=== PATIENT | male | born 1965 | race Caucasian/White ===

== ENCOUNTER 2016-08-12 09:39 | Emergency (ER) | payer MEDICARE, MEDICAID ==
[2016-08-12 10:00] VITALS: BP 151/83
--- NOTE | 2016-08-12 10:18 | UC ---
Throat Pain/Nasal Mehul HPI - HPI Summary HPI Summary: patient has had left sided frontal sinus pressure for the past 3 days, not relieved with advil or warm compresses. - History of Current Complaint Chief Complaint: UCGeneralIllness Stated Complaint: SINUSES Time Seen by Provider: 08/12/16 10:08 Hx Obtained From: Patient Onset/Duration: Sudden Onset, Lasting Days Severity: Moderate Cough: None Associated Signs & Symptoms: Positive: Sinus Discomfort, Nasal Discharge - Allergies/Home Medications Allergies/Adverse Reactions: Allergies Allergy/AdvReac Type Severity Reaction Status Date / Time No Known Allergies Allergy Verified 08/12/16 09:59 Home Medications: Home Medications Atorvastatin* [Lipitor 10 MG*] 30 mg PO BEDTIME 08/12/16 [History Confirmed ] Ibuprofen TAB* [Advil TAB*] 400 mg PO Q6H PRN 08/12/16 [History Confirmed ] Lisinopril [Prinivil TAB 20 mg] 20 mg PO DAILY 08/12/16 [History Confirmed 08/12] PMH/Surg Hx/FS Hx/Imm Hx Previously Healthy: Yes Cardiovascular History Of: Reports: Hypertension - Surgical History Surgical History: None - Family History Known Family History: Positive: Cardiac Disease, Hypertension - Social History Alcohol Use: Rare Substance Use Type: None Smoking Status (MU): Current Every Day Smoker Type: Cigarettes Amount Used/How Often: 1 PPD Length of Time of Smoking/Using Tobacco: 30 Have You Smoked in the Last Year: Yes - Immunization History Most Recent Influenza Vaccination: not this season Review of Systems Constitutional: Fatigue Skin: Negative Eyes: Eye Redness ENT: Sore Throat, Ear Ache, Nasal Discharge Respiratory: Negative Cardiovascular: Negative Gastrointestinal: Negative Genitourinary: Negative Motor: Negative Neurovascular: Negative Musculoskeletal: Negative Neurological: Headache Psychological: Negative All Other Systems Reviewed And Are Negative: Yes Physical Exam Triage Information Reviewed: Yes Appearance: Well-Nourished, Ill-Appearing, Pain Distress Vital Signs: Initial Vital Signs Temp 98.6 F 08/12/16 09:54 Pulse 109 08/12/16 09:54 Resp 16 08/12/16 09:54 BP 151/83 08/12/16 09:54 Pulse Ox 99 08/12/16 09:54 Vital Signs Reviewed: Yes Eye Exam: Normal Eyes: Positive: Conjunctiva Inflamed ENT: Positive: Pharyngeal erythema, Nasal congestion, Nasal drainage, TM bulging - right Neck exam: Normal Neck: Positive: Supple, Nontender Respiratory Exam: Normal Respiratory: Positive: Chest non-tender, Lungs clear, Normal breath sounds Cardiovascular Exam: Normal Cardiovascular: Positive: RRR, No Murmur, Pulses Normal Abdominal Exam: Normal Abdomen Description: Positive: Nontender, No Organomegaly, Soft Bowel Sounds: Positive: Present Musculoskeletal Exam: Normal Musculoskeletal: Positive: Strength Intact, ROM Intact, No Edema Neurological Exam: Normal Neurological: Positive: Alert, Muscle Tone Normal Psychological Exam: Normal Skin Exam: Normal Throat Pain/Nasal Course/Dx - Course Course Of Treatment: hx obtained, exam performed, meds reviewed, treated for sinusitis - Differential Dx/Diagnosis Differential Diagnosis/HQI/PQRI: Influenza, Laryngitis, Otitis Media, Pharyngitis, Sinusitis, URI Provider Diagnoses: sinusitis Discharge - Discharge Plan Condition: Stable Disposition: HOME Prescriptions: Amoxicillin/Clavulanate TAB* [Augmentin TAB 875*] 875 mg PO BID #20 tab predniSONE TAB* [Deltasone TAB*] 40 mg PO DAILY #10 tab Patient Education Materials: Sinusitis (ED) Referrals: Leopoldo Sanchez [Primary Care Provider] - Additional Instructions: 1. take the medication as prescribed. 2. Increase your fluid intake and get plenty of rest 3. Follow up with any worsening symtpoms.
== END 2016-08-12 10:28 | disposition home or self-care (01) ==
LOC: UCCORT 09:39
DX: J32.9 Chronic sinusitis, unspecified (principal); I10 Essential (primary) hypertension; F17.210 Nicotine dependence, cigarettes, uncomplicated
CPT/HCPCS: 99212; G0463

== ENCOUNTER 2017-02-16 09:06 | Emergency (ER) | payer MEDICARE, MEDICAID ==
[2017-02-16 10:47] VITALS: BP 143/77
--- NOTE | 2017-02-16 11:29 | UC ---
Throat Pain/Nasal Mehul HPI - HPI Summary HPI Summary: Patient has increased right sided frontal and maxillary sinus pressure. pain in ear and now going into jaw. - History of Current Complaint Chief Complaint: UCRespiratory Stated Complaint: SINUS COMPLAINT Hx Obtained From: Patient Onset/Duration: Sudden Onset, Lasting Days Severity: Severe Associated Signs & Symptoms: Positive: Dysphagia, Sinus Discomfort, Nasal Discharge - Allergies/Home Medications Allergies/Adverse Reactions: Allergies Allergy/AdvReac Type Severity Reaction Status Date / Time No Known Allergies Allergy Verified 02/16/17 10:47 PMH/Surg Hx/FS Hx/Imm Hx Previously Healthy: Yes - Surgical History Surgical History: None - Family History Known Family History: Positive: Cardiac Disease, Hypertension - Social History Alcohol Use: Rare Substance Use Type: None Smoking Status (MU): Heavy Every Day Tobacco Smoker Type: Cigarettes Amount Used/How Often: 1 PPD Length of Time of Smoking/Using Tobacco: started at age 15 Have You Smoked in the Last Year: Yes - Immunization History Most Recent Influenza Vaccination: not this season Review of Systems Constitutional: Chills, Fatigue Skin: Negative Eyes: Eye Redness ENT: Sore Throat, Ear Ache - right, Nasal Discharge - right, Sinus Congestion, Sinus Pain/Tenderness - right Respiratory: Cough Cardiovascular: Negative Gastrointestinal: Negative Genitourinary: Negative Motor: Negative Neurovascular: Negative Musculoskeletal: Negative Neurological: Headache Psychological: Negative Is Patient Immunocompromised?: No All Other Systems Reviewed And Are Negative: Yes Physical Exam Triage Information Reviewed: Yes Appearance: Well-Nourished, Ill-Appearing, Pain Distress Vital Signs: Initial Vital Signs Temp 98.5 F 02/16/17 10:42 Pulse 97 02/16/17 10:42 Resp 16 02/16/17 10:42 BP 143/77 02/16/17 10:42 Pulse Ox 99 02/16/17 10:42 Vital Signs Reviewed: Yes Eyes: Positive: Conjunctiva Inflamed - eye ENT: Positive: Nasal congestion, Nasal drainage, TM red - right Dental Exam: Normal Neck exam: Normal Respiratory Exam: Normal Respiratory: Positive: Chest non-tender, No respiratory distress, No accessory muscle use, Wheezing, Inspiration Cardiovascular Exam: Normal Cardiovascular: Positive: RRR, No Murmur, Pulses Normal Abdominal Exam: Normal Abdomen Description: Positive: Nontender, No Organomegaly, Soft Bowel Sounds: Positive: Present Musculoskeletal Exam: Normal Neurological Exam: Normal Psychological Exam: Normal Skin Exam: Normal Throat Pain/Nasal Course/Dx - Course Course Of Treatment: hx obtained,exam performed ,meds reviewed, treated for sinusitis and bronchospasm - Differential Dx/Diagnosis Differential Diagnosis/HQI/PQRI: Otitis Media, Pharyngitis, Sinusitis, URI Provider Diagnoses: sinusitis. bronchospasm. tabacco abuse Discharge - Discharge Plan Condition: Stable Disposition: HOME Prescriptions: Amoxicillin PO (*) [Amoxicillin 875 MG (*)] 875 mg PO BID #20 tab predniSONE TAB* [Deltasone TAB*] 40 mg PO DAILY #14 tab Patient Education Materials: Sinusitis (ED) Referrals: Angel VALENCIA,Leopoldo Cordova [Primary Care Provider] - Additional Instructions: 1. taket the medication as prescribed. 2. Warm compresses to the sinuses 3. Tylenol and ibuprofen for pain and fever. 4. Follow up with any worsening symtpoms.
== END 2017-02-16 11:35 | disposition home or self-care (01) ==
LOC: UCCORT 09:06
DX: J32.9 Chronic sinusitis, unspecified (principal); J98.01 Acute bronchospasm; F17.210 Nicotine dependence, cigarettes, uncomplicated
CPT/HCPCS: 99212; G0463

== ENCOUNTER 2018-06-07 10:41 | Emergency (ER) | payer MEDICARE, MEDICAID ==
[2018-06-07 11:24] VITALS: BP 155/86
--- NOTE | 2018-06-07 11:56 | UC ---
Respiratory Complaint HPI - HPI Summary HPI Summary: 4 days of congestion. Two days of left sinus pain. No prior ENT surgery. No fever. No dental pain. There has been some green/yellow drainage. - History of Current Complaint Chief Complaint: UCGeneralIllness Stated Complaint: CONGESTION,SINUS Time Seen by Provider: 06/07/18 11:30 Hx Obtained From: Patient Onset/Duration: Gradual Onset, Lasting Days, Still Present Timing: Constant Severity Initially: Moderate Severity Currently: Moderate Pain Intensity: 4 Pain Scale Used: 0-10 Numeric Aggravating Factors: Deep Breaths, Recumbent Position Alleviating Factors: Upright Position, Spontaneous Resolution Associated Signs And Symptoms: Positive: URI, Nasal Congestion, Sinus Discomfort. Negative: Dyspnea, Fever, Chills, Hemoptysis, Dizziness, Calf Pain , Calf Swelling, Hoarseness - Allergies/Home Medications Allergies/Adverse Reactions: Allergies Allergy/AdvReac Type Severity Reaction Status Date / Time No Known Allergies Allergy Verified 02/16/17 10:47 Home Medications: Home Medications Acetaminophen TAB* [Tylenol TAB*] 650 mg PO Q4H PRN 06/07/18 [History Confirmed 06/07/18] Phenylephrine HCl [Sinus Pressure-Mehul Relief PE] 10 mg PO ONCE PRN 06/07/18 [ History Confirmed 06/07/18] PMH/Surg Hx/FS Hx/Imm Hx Previously Healthy: No - No prior sinus disease - Surgical History Surgical History: None - Family History Known Family History: Positive: Cardiac Disease, Hypertension - Social History Alcohol Use: None Substance Use Type: None Smoking Status (MU): Heavy Every Day Tobacco Smoker Type: Cigarettes Amount Used/How Often: 1 PPD Length of Time of Smoking/Using Tobacco: started at age 15 Have You Smoked in the Last Year: Yes - Immunization History Most Recent Influenza Vaccination: not this season Review of Systems All Other Systems Reviewed And Are Negative: Yes ENT: Positive: Sinus Congestion, Sinus Pain/Tenderness Physical Exam Triage Information Reviewed: Yes Appearance: Well-Appearing, No Pain Distress, Well-Nourished Vital Signs: Initial Vital Signs Temp 98.4 F 06/07/18 11:21 Pulse 102 06/07/18 11:21 Resp 16 06/07/18 11:21 BP 155/86 06/07/18 11:21 Pulse Ox 99 06/07/18 11:21 Vital Signs Reviewed: Yes Eyes: Positive: Conjunctiva Clear ENT: Positive: Pharynx normal, Nasal congestion, TMs normal, Uvula midline. Negative: Pharyngeal erythema, Nasal drainage, TM bulging, TM dull, TM red, Tonsillar swelling, Tonsillar exudate, Trismus, Muffled voice, Sinus tenderness Neck: Positive: Supple, Nontender, No Lymphadenopathy Respiratory: Positive: Lungs clear, Normal breath sounds, No respiratory distress, No accessory muscle use. Negative: Respiratory distress, Decreased breath sounds, Accessory muscle use, Crackles, Rhonchi, Stridor, Wheezing Cardiovascular: Positive: No Murmur, Pulses Normal, Brisk Capillary Refill Abdomen Description: Positive: Soft. Negative: Distended, Guarding Musculoskeletal: Positive: Strength Intact, ROM Intact, No Edema Neurological: Positive: Alert, Muscle Tone Normal. Negative: Fatigued Psychological: Positive: Normal Response To Family, Age Appropriate Behavior Skin: Negative: Rashes Respiratory Course/Dx - Differential Dx/Diagnosis Provider Diagnosis: URI (upper respiratory infection) Discharge - Sign-Out/Discharge Documenting (check all that apply): Patient Departure All imaging exams completed and their final reports reviewed: No Studies - Discharge Plan Condition: Good Disposition: HOME Prescriptions: Amoxicillin PO (*) [Amoxicillin 875 MG (*)] 875 mg PO BID #20 tab Patient Education Materials: Upper Respiratory Infection (ED) Referrals: Leopoldo Sanchez [Primary Care Provider] - Additional Instructions: Flonase, netti pot, nasal irrigation. Start antibiotic if symptoms persist or worsen around day 9 or so - Billing Disposition and Condition Condition: GOOD Disposition: Home
== END 2018-06-07 11:49 | disposition home or self-care (01) ==
LOC: UCCORT 10:41
DX: J06.9 Acute upper respiratory infection, unspecified (principal); F17.210 Nicotine dependence, cigarettes, uncomplicated
CPT/HCPCS: 99212; G0463

== ENCOUNTER 2019-06-28 08:26 | Emergency (ER) | payer MEDICAID, MEDICARE, OTHER ==
[2019-06-28 08:45] VITALS: BP 201/88
--- NOTE | 2019-06-28 08:49 | UC ---
Back Pain HPI - HPI Summary HPI Summary: 53-year-old male who was lifting an approximate 70-80 pound bag while at work on June 04. He experienced moderate low back pain but continued to work the next day. He states since then he has not worked and has tried to take care of it at home however has been unsuccessful. He came today because his family encouraged him to seek treatment. He denies any saddle anesthesia, no difficulty urinating and no difficulty with bowel movements. He does have mild radiation from the right buttock into his posterior thigh. - History of Current Complaint Chief Complaint: UCBackPain Stated Complaint: WC-BACK INJURY Time Seen by Provider: 06/28/19 08:35 Hx Obtained From: Patient Onset/Duration: Sudden Onset, Lasting Weeks Timing: Constant Severity Initially: Moderate Severity Currently: Moderate Pain Intensity: 8 Character: Sharp, Spasmodic Aggravating Factor(s): Movement, Lifting, Bending Alleviating Factor(s): Nothing - Rest and not moving helps Associated Signs And Symptoms: Positive: Negative. Negative: Weakness, Numbness , Tingling, Abdominal Pain, Flank Pain, Bladder Incontinence, Bowel Incontinence - Allergies/Home Medications Allergies/Adverse Reactions: Allergies Allergy/AdvReac Type Severity Reaction Status Date / Time No Known Allergies Allergy Verified 06/28/19 08:45 Home Medications: Home Medications Buspirone HCl 7.5 mg PO BID 12/07/14 [History Confirmed 06/28/19] Atorvastatin* [Lipitor 10 MG*] 30 mg PO BEDTIME 08/12/16 [History Confirmed ] Ibuprofen TAB* [Advil TAB*] 800 mg PO Q6H PRN 08/12/16 [History Confirmed ] lisinopriL [Prinivil TAB 20 mg] 20 mg PO DAILY 08/12/16 [History Confirmed 06/27] Acetaminophen TAB* [Tylenol TAB*] 650 mg PO Q4H PRN 06/07/18 [History Confirmed 06/28/19] Cyclobenzaprine TAB* [Flexeril 10 MG TAB*] 10 mg PO TID PRN #21 tab 06/28/19 [Rx ] Ibuprofen TAB* [Motrin TAB* 600 MG] 600 mg PO Q8H PRN #30 tab 06/28/19 [Rx] PMH/Surg Hx/FS Hx/Imm Hx Previously Healthy: Yes Cardiovascular History: Hypertension Psychological History: Anxiety - Surgical History Surgical History: None - Family History Known Family History: Positive: Cardiac Disease, Hypertension - Social History Lives: With Family Alcohol Use: None Substance Use Type: None Smoking Status (MU): Former Smoker Type: Cigarettes Amount Used/How Often: 1 PPD Length of Time of Smoking/Using Tobacco: started at age 15 Have You Smoked in the Last Year: Yes When Did the Patient Quit Smoking/Using Tobacco: Apr 2019 - Immunization History Most Recent Influenza Vaccination: not this season Review of Systems All Other Systems Reviewed And Are Negative: Yes Musculoskeletal: Positive: Other: - Pasin mostly right lower back which also radiates mildly down right buttock and upper right posterior thigh Neurological/Mental Status: Negative: Weakness, Paresthesia, Numbness Is Patient Immunocompromised?: No Physical Exam Triage Information Reviewed: Yes Appearance: Well-Appearing, No Pain Distress, Well-Nourished Vital Signs: Initial Vital Signs Temp 99.3 F 06/28/19 08:38 Pulse 111 06/28/19 08:38 Resp 18 06/28/19 08:38 BP 201/88 06/28/19 08:38 Pulse Ox 100 06/28/19 08:38 Vital Signs Reviewed: Yes Respiratory: Positive: Lungs clear, Normal breath sounds, No respiratory distress, No accessory muscle use Cardiovascular: Positive: RRR, No Murmur, Pulses Normal, Brisk Capillary Refill Abdomen Description: Positive: Nontender, Soft. Negative: CVA Tenderness (R), CVA Tenderness (L) Bowel Sounds: Positive: Present Musculoskeletal: Positive: Strength Intact, ROM Intact, Other: - Good peripheral pulses, neuro sensation and capillary refill. Mild pain on palpation right buttock. 9 is nontender. Neurological Exam: Normal - Reflexes +2 at the knee, mild right straight leg raise. Neurological: Positive: Alert Psychological Exam: Normal Skin Exam: Normal Back Pain Course/Dx - Course Course Of Treatment: Patient is comfortable here. He refused an injection of Toradol. We discussed follow-up with Dr. Weeks or Dr. Lovell because this is a Work-related injury. 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 I advised him to call Dr. paige and or Dr. Lovell this week to be seen and reevaluated. - Differential Dx/Diagnosis Provider Diagnosis: Low back strain, Right sided sciatica Discharge ED - Sign-Out/Discharge Documenting (check all that apply): Patient Departure All imaging exams completed and their final reports reviewed: No Studies - Discharge Plan Condition: Fair Disposition: HOME Prescriptions: Cyclobenzaprine TAB* [Flexeril 10 MG TAB*] 10 mg PO TID PRN #21 tab PRN Reason: Pain - Mild Ibuprofen TAB* [Motrin TAB* 600 MG] 600 mg PO Q8H PRN #30 tab PRN Reason: Pain - Mild Patient Education Materials: Sciatica (ED) Forms: *Work Release Referrals: Leopoldo Ortiz PA [Primary Care Provider] - Tho Weeks MD [Medical Doctor] - Antwan Lovell MD [Medical Doctor] - Additional Instructions: Avoid movements that cause pain. Take the Motrin with food. He may alternate Tylenol every 4 hours with Motrin every 8 hours for pain. No drinking alcohol, driving or operating machinery while taking the muscle relaxant. - Billing Disposition and Condition Condition: FAIR Disposition: Home - Attestation Statements Provider Attestation: I was available for consult. This patient was seen by the ABDIAS. The patient was not presented to, seen by, or examined by me. -Leon
== END 2019-06-28 09:12 | disposition home or self-care (01) ==
LOC: UCCORT 08:26
DX: S39.012A Strain of muscle, fascia and tendon of lower back, initial encounter (principal); M54.41 Lumbago with sciatica, right side; X50.0XXA Overexertion from strenuous movement or load, initial encounter; Y93.89 Activity, other specified; Y92.9 Unspecified place or not applicable; Y99.0 Civilian activity done for income or pay; I10 Essential (primary) hypertension; F41.9 Anxiety disorder, unspecified; Z79.899 Other long term (current) drug therapy; Z87.891 Personal history of nicotine dependence
CPT/HCPCS: 99212; G0463